=== PATIENT | male | born 1955 | race African-American/Black ===

== ENCOUNTER 2022-01-19 03:00 | Emergency (ER) | payer OTHER, MEDICAID ==
[~2022-01-19] VITALS: Ht 177.8 cm; Wt 77.0 kg
[2022-01-19 03:02] VITALS: BP 138/86
[2022-01-19] MEDS ORDERED: KETOROLAC 60MG/2ML VIAL IM ONE (06:45)
[2022-01-19] MEDS ORDERED: IBUP-2029 MT (09:44)
[2022-01-19] MEDS ORDERED: SKEL800 MT (09:44)
== END 2022-01-19 09:55 | disposition home or self-care (01) ==
LOC: ER 03:00
DX: S39.012A Strain of muscle, fascia and tendon of lower back, initial encounter (principal); S30.0XXA Contusion of lower back and pelvis, initial encounter; S33.5XXA Sprain of ligaments of lumbar spine, initial encounter; M41.9 Scoliosis, unspecified; W03.XXXA Other fall on same level due to collision with another person, initial encounter; Y93.9 Activity, unspecified; Y92.9 Unspecified place or not applicable
CPT/HCPCS: 72100; 96372; 99283; J1885